=== PATIENT | male | born 1990 | race Caucasian/White ===

== ENCOUNTER → 2018-11-12 | Day surgery (SDC) | payer OTHER ==
--- NOTE | ~2018-11-12 | OP ---
[facility] [address] [place] [address] OPERATIVE REPORT Name: JERONIMO STEPHENS Room: [facility].#: [id number] Admission: 11/12/18 Attend Phys: Leonidas Suazo Discharge: Date of : 88 Report #: [id number] THIS REPORT FOR: //name// CC: FAM unknown Leonidas Suazo DATE OF SERVICE: 11/12/2018 PREOPERATIVE DIAGNOSIS: Buttock abscess. POSTOPERATIVE DIAGNOSIS: Buttock abscess. OPERATION: Incision and drainage of buttock abscess. SURGEON: Leonidas Suazo MD ANESTHESIA: General. ESTIMATED BLOOD LOSS: Minimal. SPECIMEN: Abscess fluid for culture and sensitivity. DESCRIPTION OF PROCEDURE: After informed consent was obtained, the patient was brought to the operating room and placed supine. SCDs were placed and working, preoperative antibiotics were administered, general anesthesia was induced. The patient was placed in the prone position with all bony prominences protected as well as his genitals and his eyes. The area was prepped and draped in the usual sterile fashion. A 2 x 1-cm elliptical incision was made over the area of fluctuance. Delgado pus was expressed. It was cultured. He had approximately 4 x 4 x 4 cm cavity. This was irrigated. I also curetted the area to remove any debris. It was then packed with sterile gauze. Sterile dressings were applied. COMPLICATIONS: None. DISPOSITION: The patient was taken to recovery in satisfactory condition. By: [id number] Suazo MD /colette
== END | disposition home or self-care (01) ==
LOC: M.SUR 06:08
DX: L02.31 Cutaneous abscess of buttock (principal)